=== PATIENT | female | born 1965 | race Caucasian/White ===

== ENCOUNTER 2018-11-19 16:13 | Emergency (ER) | payer SELFPAY ==
[2018-11-19] MEDS ORDERED: FLU Vacc QS2019-20(6MOS+)/PF 60 MCG/0.5 ML SYRINGE IM ONE (18:15)
== END 2018-11-19 21:33 | disposition left against medical advice (07) ==
LOC: JD.ED 16:13
DX: Z53.21 Procedure and treatment not carried out due to patient leaving prior to being seen by health care provider (principal)

== ENCOUNTER 2021-07-27 21:14 | Emergency (ER) | payer SELFPAY | END 2021-07-27 22:15 | disposition home or self-care (01) | LOC: JD.ED 21:14 | DX: S90.822A Blister (nonthermal), left foot, initial encounter (principal); S90.821A Blister (nonthermal), right foot, initial encounter; K64.5 Perianal venous thrombosis; Z88.5 Allergy status to narcotic agent; Y93.01 Activity, walking, marching and hiking | CPT/HCPCS: 99283; 99284 ==

== ENCOUNTER 2021-08-23 23:31 | Emergency (ER) | payer SELFPAY | END 2021-08-24 02:37 | disposition home or self-care (01) | LOC: JD.ED 23:31 | DX: S60.861A Insect bite (nonvenomous) of right wrist, initial encounter (principal); S60.862A Insect bite (nonvenomous) of left wrist, initial encounter; Z88.6 Allergy status to analgesic agent; W57.XXXA Bitten or stung by nonvenomous insect and other nonvenomous arthropods, initial encounter | CPT/HCPCS: 99282; 99283 ==

== ENCOUNTER 2022-10-27 13:53 | Emergency (ER) | payer SELFPAY ==
[2022-10-27] MEDS ORDERED: Lidocaine/EPINEPHrine/Tetracaine Soln 1 ML TOP ONE (16:37)
[2022-10-27] MEDS ORDERED: Sulfamethoxazole/Trimethoprim 800-160 MG Tab PO ONE (17:28)
[2022-10-27] MEDS ORDERED: cefTRIAXone 1 GM, Lidocaine 1% 2.1 ML IM SCH ×2 (17:30)
== END 2022-10-27 18:20 | disposition home or self-care (01) ==
LOC: JD.ED 13:53
DX: L02.512 Cutaneous abscess of left hand (principal); J45.909 Unspecified asthma, uncomplicated; Z88.5 Allergy status to narcotic agent; Z98.890 Other specified postprocedural states
CPT/HCPCS: 73140; 96372; 99283; A9270; J0696; J3490

== ENCOUNTER 2022-11-04 13:13 | Emergency (ER) | payer SELFPAY | END 2022-11-04 16:10 | disposition home or self-care (01) | LOC: JD.ED 13:13 | DX: L03.012 Cellulitis of left finger (principal); Z88.5 Allergy status to narcotic agent | CPT/HCPCS: 99282; 99283 ==

== ENCOUNTER 2022-11-19 23:27 | Emergency (ER) | payer SELFPAY | END 2022-11-20 01:31 | disposition home or self-care (01) | LOC: JD.ED 23:27 | DX: L02.512 Cutaneous abscess of left hand (principal); Z88.5 Allergy status to narcotic agent | CPT/HCPCS: 99282 ==

== ENCOUNTER 2023-08-23 23:49 | Emergency (ER) | payer SELFPAY | END 2023-08-24 01:27 | disposition home or self-care (01) | LOC: JD.ED 23:49 | DX: L98.9 Disorder of the skin and subcutaneous tissue, unspecified (principal); J45.909 Unspecified asthma, uncomplicated; Z88.5 Allergy status to narcotic agent | CPT/HCPCS: 99282; 99283 ==